=== PATIENT | male | born 1950 | race Two or more races ===

== ENCOUNTER 2024-06-04 22:25 | Emergency (ER) | payer OTHER ==
[~2024-06-04] VITALS: Ht 188 cm; Wt 104.3 kg
[2024-06-04] MEDS ORDERED: AMLODIPINE-OLM1 EAC2 PO (22:34)
[2024-06-04] MEDS ORDERED: AMLODIPINE BESYLATE 10 MG TABLET PO STA (22:39)
== END 2024-06-05 01:04 | disposition home or self-care (01) ==
LOC: ER 22:27
DX: I10 Essential (primary) hypertension (principal)